=== PATIENT | female | born 1970 | race African-American/Black ===

== ENCOUNTER 2021-11-30 13:27 | Inpatient (IN) | payer OTHER ==
[~2021-11-30] VITALS: Ht 157.5 cm; Wt 65.8 kg
[2021-11-30] MEDS ORDERED: ASPIRIN 81MG TABLET PO ONE (13:45)
[2021-11-30 15:36] LABS: BASOPHILS % 0.5 % (0.0-2.0); EOSINOPHILS % 1.2 % (0.0-5.0); HEMATOCRIT. 39.3 % (36.0-48.0); HEMOGLOBIN. 13.1 g/dL (12.0-16.0); MEAN CORPUSCULAR HEMOGLOBIN 29.5 pg (28.0-32.0); MEAN CORPUSCULAR VOLUME 88.5 fL (81.0-99.0); MEAN PLATELET VOLUME 6.4 fl (7.4-10.4); MONOCYTES % 6.9 % (2.0-8.0); NEUTROPHILS % 42.4 % (40.0-76.0); PLATELET 305 x1000/uL (130-400); RED BLOOD CELL COUNT 4.44 mill/uL (4.2-5.4); RED CELL DISTRIBUTION WIDTH 14.9 % (11.6-14.6)
[2021-11-30 15:43] LABS: CHLORIDE 104 mEq/L (98-107)
[2021-11-30] MEDS ORDERED: ONDANSETRON HCL 4MG/2ML INJ IV STA (16:29)
[2021-11-30] MEDS ORDERED: MORPHINE SULFATE 4 MG/ML CPJ (NOT FOR IM USE) IV STA (16:29)
[2021-11-30] MEDS ORDERED: MORPHINE SULFATE 2 MG/ML CPJ (NOT FOR IM USE) IV NR (23:30)
[2021-12-01 10:00] VITALS: BP 132/78
[2021-12-01] MEDS ORDERED: ACETAMINOPHEN 325MG TABLET PO PRN (11:15)
[2021-12-01] MEDS ORDERED: ONDANSETRON HCL 4MG/2ML INJ IV PRN (11:15)
[2021-12-01] MEDS ORDERED: CLOP75TA33 MT (11:56)
[2021-12-01] MEDS ORDERED: BISO5TAB13 MT (11:56)
[2021-12-01] MEDS ORDERED: METO25TA6 MT (11:56)
[2021-12-01] MEDS ORDERED: ATOR80TA MT (11:56)
[2021-12-01] MEDS ORDERED: ASPI-1497 MT (11:56)
[2021-12-01 12:00] VITALS: BP_SYST 125; BP_SYST 132; BP_DIAS 78; BP_DIAS 81
[2021-12-01] MEDS ORDERED: NALOXONE HCL 0.4MG/ML VIAL IV PRN (13:45)
[2021-12-01] MEDS ORDERED: HYDROCODONE/ACETAMINOPHEN 5/325MG TABLET PO PRN (13:45)
[2021-12-01] MEDS: TRAMADOL 50MG TABLET PO PRN ×2 (14:18→22:06)
[2021-12-01 16:00] VITALS: BP 122/78
[2021-12-01 20:00] VITALS: BP 118/74
[2021-12-01] MEDS: ZOLPIDEM TARTRATE 5MG TABLET PO PRN (22:31)
[2021-12-02] VITALS (10 sets, daily range): BP systolic 101–130; BP diastolic 71–86
[2021-12-02] MEDS ORDERED: IODIXANOL 320MG/ML 100 ML BOTTLE IV ONE (07:17)
[2021-12-02] MEDS ORDERED: LIDOCAINE HCL/PF 1% 10 MG/ML 5ML VIAL ONE (07:17)
[2021-12-02] MEDS ORDERED: VERAPAMIL HCL 2.5 MG/1 ML 2ML VIAL IV ONE (08:28)
[2021-12-02] MEDS ORDERED: MIDAZOLAM HCL 2 MG/2 ML VIAL ONE (08:28)
[2021-12-02] MEDS ORDERED: DIPHENHYDRAMINE 50MG/ML VIAL ONE (08:28)
[2021-12-02] MEDS ORDERED: FENTANYL CITRATE/PF 50MCG/ML 2ML VIAL ONE (08:28)
[2021-12-02] MEDS ORDERED: HEPARIN 1000 UNITS/ML 10ML ONE (08:30)
[2021-12-02] MEDS: ASPIRIN 81MG TABLET PO SCH (09:00)
[2021-12-02] MEDS ORDERED: ONDANSETRON HCL 4MG/2ML INJ ONE (11:29)
[2021-12-02] MEDS ORDERED: CLOPIDOGREL 75MG TABLET ONE (12:44)
[2021-12-02] MEDS ORDERED: ASPIRIN 325MG TABLET ONE (12:45)
[2021-12-02] MEDS ORDERED: ATROPINE SULFATE 1MG/10ML SYR IV PRN (13:00)
[2021-12-02 15:16] LABS: BASOPHILS % 0.5 % (0.0-2.0); EOSINOPHILS % 2.1 % (0.0-5.0); HEMATOCRIT. 39.4 % (36.0-48.0); HEMOGLOBIN. 13.4 g/dL (12.0-16.0); LYMPHOCYTES % 43.8 % (20.0-50.0); MEAN CORPUSCULAR HEMOGLOBIN 29.4 pg (28.0-32.0); MEAN CORPUSCULAR VOLUME 86.9 fL (81.0-99.0); MEAN PLATELET VOLUME 6.8 fl (7.4-10.4); NEUTROPHILS % 46.6 % (40.0-76.0); PLATELET 292 x1000/uL (130-400); RED BLOOD CELL COUNT 4.54 mill/uL (4.2-5.4); RED CELL DISTRIBUTION WIDTH 14.7 % (11.6-14.6)
[2021-12-02 15:33] LABS: CHLORIDE 108 mEq/L (98-107)
[2021-12-02] MEDS: TRAMADOL 50MG TABLET PO PRN (20:54)
[2021-12-02 22:08] LABS: *AMPHETAMINES SCREEN URINE NEGATIVE (NEGATIVE); *BARBITURATES SCREEN URINE NEGATIVE (NEGATIVE); *BENZODIAZEPINES SCREEN URINE PRESUMTIVE POSITIVE (NEGATIVE); *COCAINE SCREEN URINE NEGATIVE (NEGATIVE); CANNABINOID URINE SCREEN PRESUMTIVE POSITIVE (NEGATIVE); METHADONE URINE SCREEN NEGATIVE (NEGATIVE); OPIATES URINE SCREEN NEGATIVE (NEGATIVE); PHENCYCLIDINE URINE SCREEN NEGATIVE (NEGATIVE)
[2021-12-02] MEDS: ZOLPIDEM TARTRATE 5MG TABLET PO PRN (23:09)
[2021-12-03] VITALS (7 sets, daily range): BP systolic 91–137; BP diastolic 59–76
[2021-12-03 06:03] LABS: BASOPHILS % 0.3 % (0.0-2.0); EOSINOPHILS % 1.9 % (0.0-5.0); HEMATOCRIT. 39.2 % (36.0-48.0); HEMOGLOBIN. 13.1 g/dL (12.0-16.0); LYMPHOCYTES % 51.7 % (20.0-50.0); MEAN CORPUSCULAR HEMOGLOBIN 29.2 pg (28.0-32.0); MEAN CORPUSCULAR VOLUME 87.6 fL (81.0-99.0); MEAN PLATELET VOLUME 6.9 fl (7.4-10.4); MONOCYTES % 7.3 % (2.0-8.0); NEUTROPHILS % 38.8 % (40.0-76.0); PLATELET 295 x1000/uL (130-400); RED BLOOD CELL COUNT 4.47 mill/uL (4.2-5.4); RED CELL DISTRIBUTION WIDTH 14.9 % (11.6-14.6)
[2021-12-03 06:19] LABS: CHLORIDE 104 mEq/L (98-107)
[2021-12-03] MEDS: ASPIRIN 81MG TABLET PO SCH (08:03)
[2021-12-03] MEDS ORDERED: CLOPIDOGREL 75MG TABLET PO SCH (09:00)
== END 2021-12-03 16:20 | disposition home or self-care (01) | DRG 246 ==
LOC: ER 13:27 → MICUSO 21:29 → EDBEDREQ 21:35 → EDBEDREQTM 21:35 → 7EST 12-01 11:48 → 5EST 12-02 13:05
PROVIDERS: ADMIT Internal Medicine; ATTEND Internal Medicine
PROC: 027034Z Dilation of Coronary Artery, One Artery with Drug-eluting Intraluminal Device, Percutaneous Approach (ICD-10-PCS; principal; 2021-12-02)
PROC: 4A023N7 Measurement of Cardiac Sampling and Pressure, Left Heart, Percutaneous Approach (ICD-10-PCS; 2021-12-02)
PROC: B211YZZ Fluoroscopy of Multiple Coronary Arteries using Other Contrast (ICD-10-PCS; 2021-12-02)
PROC: B240ZZ3 Ultrasonography of Single Coronary Artery, Intravascular (ICD-10-PCS; 2021-12-02)
DX: T82.855A Stenosis of coronary artery stent, initial encounter (principal); I21.4 Non-ST elevation (NSTEMI) myocardial infarction; I10 Essential (primary) hypertension; E78.00 Pure hypercholesterolemia, unspecified; F17.210 Nicotine dependence, cigarettes, uncomplicated; F41.9 Anxiety disorder, unspecified; I25.10 Atherosclerotic heart disease of native coronary artery without angina pectoris; Z20.822 Contact with and (suspected) exposure to COVID-19; E78.5 Hyperlipidemia, unspecified; Y83.8 Other surgical procedures as the cause of abnormal reaction of the patient, or of later complication, without mention of misadventure at the time of the procedure; Y92.89 Other specified places as the place of occurrence of the external cause; Z95.5 Presence of coronary angioplasty implant and graft; Z79.899 Other long term (current) drug therapy; Z79.82 Long term (current) use of aspirin; Z71.6 Tobacco abuse counseling
CPT/HCPCS: 36415; 71045; 80048; 80053; 80305; 83880; 84484; 85025; 85347; 87426; 92928; 92978; 93005; 93306; 93458; 99285; C1753; C1769; C1874; C1887; C1893; C9803; J1200; J1644; J2250; J2270; J2405; J3010; J3490; Q9967